=== PATIENT | female | born 1955 | race Caucasian/White ===

== ENCOUNTER 2018-10-10 05:23 | Inpatient (IN) | payer BC, SELFPAY ==
[2018-09-28 13:09] VITALS: BP 133/74; PULSE 52; RESP 16; TEMP 36.5; O2SAT 97; BMI 29.9
--- NOTE | 2018-09-28 13:27 | SDCEKG_ITS ---
Test Reason : Blood Pressure : / mmHG Vent. Rate : 054 BPM Atrial Rate : 054 BPM P-R Int : 172 ms QRS Dur : 088 ms QT Int : 456 ms P-R-T Axes : 057 038 051 degrees QTc Int : 432 ms Sinus bradycardia Otherwise normal ECG Confirmed by ABDI MATTHEWS, ELIZABETH ([id number]), editorial clerk LORENA CHA ([id number]) on 10/03/2018 3:51:23 PM Referred By: Frankie Hernandez Confirmed By:ELIZABETH PATTON MD
--- NOTE | 2018-09-28 13:44 | RAD_ITS ---
STUDY: X-RAY CHEST REASON FOR EXAM: Female, 63 years old. Preprocedural respiratory exam, preop TECHNIQUE: PA and lateral views of the chest. COMPARISON: None. FINDINGS: The lungs are clear and expanded. There is no demonstrated pleural abnormality. Normal size heart. Normal mediastinum and jesse. Normal visualized pulmonary arteries. Normal visualized aortic arch and descending thoracic aorta. Normal visualized thoracic spine. Normal visualized ribs, clavicles, and shoulders. There is no demonstrated abnormality of the visualized soft tissue structures of the upper abdomen. RAD/Chest PA and Lateral IMPRESSION: Normal x-ray examination of the chest. Electronically Signed: Navin Santillan DO at 12:31 EDT Tel , Service support ,
[2018-09-28 13:59] LABS: Absolute Lymphocyte Count 2.57 X10^3/ul (0.83-4.51); Absolute Neutrophil Count 3.9 X10^3/uL (2.0-7.7); Basophil# 0.05 X10^3/uL; Basophil% 0.7 % (0-1); Eosinophil# 0.38 X10^3/uL; Eosinophils% 5.2 % (0-5); Hematocrit 36.6 % (37-47); Hemoglobin 11.8 g/dl (12.0-15.0); Lymphocyte # 2.57 X10^3/ul (4.0); Lymphocyte % 35.1 % (19-41); Mean Corp Hgb Conc 32.2 g/gl (32-36); Mean Corpuscular Volume 86.9 fL (81-99); Mean Platelet Vol. 9.7 fl (6.2-12.0); Monocyte% 5.5 % (0-10); Neutrophil % 53.2 % (47-70); Platelet Count 263 K/mm3 (150-450); RBC Distribution Width CV 13.6 % (11.6-14.6); RBC Distribution Width SD 43.1 fl (35.1-43.9); Red Blood Count 4.21 M/mm3 (4.2-5.4); White Blood Count 7.3 K/mm3 (4.4-11.0)
[2018-09-28 14:00] LABS: POSITIVE COUNT NO; POSITIVE DIFFERENTIAL NO; POSITIVE MORPHOLOGY NO
[2018-09-28 14:07] LABS: Anion Gap 7 (5-15); BUN 29 mg/dL (7-18); BUN/Creat Ratio 22.7 RATIO (10-20); Calcium,Total 8.8 mg/dL (8.5-10.1); Chloride 106 mmol/L (98-107); Creatinine, Serum 1.28 mg/dL (0.55-1.02); EST Glomerular Filtration Rate 45 mL/min (>60); Est Glom Filt Rate - Afr Amer 54 mL/min (>60); Estimated Creatinine Clearance 38.18 ml/min; Glucose 136 mg/dL (74-106); Potassium 3.8 mmol/L (3.5-5.1); Sodium Level 140 mmol/L (136-145)
[2018-09-28 14:19] LABS: Hemoglobin A1c 6.5 % (4.2-6.3)
--- NOTE | 2018-10-06 10:43 | CASEMGMT ---
Call placed to patient to discuss discharge needs after upcoming surgery. Patient plans to return home with assistance from . Has outpatient physical therapy set up at [facility], will assist with transportation. Patient has a walker, bedside commode, walk-in shower with shower seat. Bedroom and bathroom are on the upper level of her split-level home. There are 2 steps into home from outside. Informed patient that RN-CM will follow up after surgery. Leigh Ann Fitzpatrick LPN Clinical Support
[2018-10-10] VITALS (11 sets, daily range): BP systolic 109–163; BP diastolic 48–74; PULSE 68–80; RESP 14–18; TEMP 36.2–38.2; O2SAT 97–100; BMI 29.9
--- NOTE | 2018-10-10 | HIP_PTH ---
PATIENT: OLEG BELL LOC: MS3 U#:[id number] AGE/SX: 63/F ROOM: WI313 RE10/10/[address]: Dr. Frankie Hernandez DO : 1955 BED: 1 DIS: 10/11/2018 SPEC #: [id number] RECD: 10/10/18 14:30 STATUS: MANA RENazario #: [id number] ARJUN: 10/10/18 00:[address]: Frankie Hernandez DEPT: SURGICAL PATHOLOGY RECD BY: Jayden Weaver ENTERED: 10/10/18 14:30 SP TYPE: TOTAL HIP OTHR DR: Dr. Jayjay Reyes DO Tissues: Hip, NOS Procedures: Decalcification bone/plaque Surgery Specimen Level IV HEADER OPERATION: Total hip replacement PRE-OP DIAGNOSIS: Primary osteoarthritis, left hip TISSUE SUBMITTED: Left femoral head bone and tissue MICROSCOPIC DIAGNOSIS Left femoral head bone and tissue, total hip replacement/resection: Femoral head with degenerative osteoarthritic changes. Fragments of fibroadipose tissue, fibroconnective tissue and synovial tissue. RYAN:princess 10/13/18 MICROSCOPIC DESCRIPTION Slides are reviewed. GROSS DESCRIPTION Received is one container labeled with the patient's name and designated left humeral head bone and soft tissue, left hip. The specimen consists of a salazar femoral head with portion of femoral neck. The femoral head measures 4.5 x 5 x 4.5 cm and the femoral neck measures up to 1.5 cm in length. The articular surface displays prominent osteophyte formation, eburnation and bone erosion. Also present in the specimen container are multiple irregular fragments of bone reamings and pink-yellow soft tissue measuring in aggregate 9 x 8 x 3.5 cm. Lube Worker sections are submitted in two cassettes as follows: 1 - soft tissue, 2 - bone after decalcification. / RYAN:princess 10/10/18 TC: 5 CPT: 67627, 86419
[2018-10-10] MEDS: oxyCODONE HCl Cr 10 MG Tablet PO (06:38)
[2018-10-10] MEDS: Acetaminophen 500 MG Tablet 1000 MG PO ×3 (06:38→21:42)
[2018-10-10 06:55] LABS: Bedside Glucose 148 mg/dL (70-110)
[2018-10-10] MEDS: Cefazolin 2 GM in 0.9% Normal Saline 100 ML IV (07:18)
--- NOTE | 2018-10-10 07:25 | RAD_ITS ---
STUDY: X-RAY - PELVIS AND LEFT HIP REASON FOR EXAM: Postoperative left hip. TECHNIQUE: Radiological exam, hip, unilateral, with pelvis when performed; 2 or 3 views. COMPARISON: None. FINDINGS: There is postoperative gas in the soft tissues adjacent to the left hip and overlying skin leatha. Normal bilateral superior and inferior pubic rami. Normal pubic symphysis. Normal bilateral ischial tuberosities. There is a left hip arthroplasty without evidence of complication. There is right hip arthrosis. RAD/Hip Min 2 Views (Portable) IMPRESSION: Uncomplicated left hip arthroplasty. Electronically Signed: Parker Osborn MD at 9:43 EST Tel , Service support ,
--- NOTE | 2018-10-10 08:29 | OP.PN_ITS ---
Immediate Post-Op Note Date of Procedure: 10/10/18 Primary Surgeon/Physician: Frankie Hernandez instrument technician: Philippe Dave Pre-Operative Diagnosis: OA left hip Post-Operative Diagnosis: same Surgery/Procedure Performed:: Left THR Description of Surgical Findings:: see op note Estimated Blood Loss: 100 cc Specimen's removed: femoral head Type of Anesthesia:: Spinal ASA Class: ASA2 Mod Systematic Disease - Admit VTE Documentation VTE Present on Admission: No VTE Mechan Device Prophylaxis: SCD's, Knee High PALMA Hose VTE Pharm Prophylaxis ordered?: Yes
--- NOTE | 2018-10-10 08:33 | OP.PCM_ITS ---
Operative Report Date of Procedure: 10/10/18 Primary Surgeon/Physician: Frankie Hernandez heel seater: Philippe Dave PA-C heel seater: Pre-Operative Diagnosis: OA Left hip Post-Operative Diagnosis: same Surgery/Procedure Performed: Left THR Estimated Blood Loss: 100 cc Specimen's Removed: femoral head Type of Anesthesia: spinal ASA Class: ASA 2 Severe Disease Implants: [Duy Accolade 2 size 3 125 degree femoral stem, 48 mm Trident cup, + 0 MDM femoral head ] Surgical Indications: Patient has severe end-stage osteoarthritic changes in the [left ] hip. They have failed conservative measures including activity modification, anti-inflammatories, use of assistive devices. This to the point where the pain affects their ability to enjoy life and complete activities of daily living without discomfort. Patient has elected to undergo the above procedure Procedure Description: The patient was greeted in the preoperative area the [left ] hip was marked with surgical marker preoperative antibiotics administered. The patient was then taken to or suite in stable condition. Preoperative tranexamic acid was also utilized. Once the patient was placed in the supine position on the operating room table and once adequate anesthesia was obtained they were then placed in the lateral decubitus position with the surgical hip facing the field. All bony prominences were well-padded. A commercial hip position was utilized. The appropriate extremity was then prepped and draped in usual sterile fashion. Ioban was placed on the skin. Surgical timeout was performed and surgery was commenced. A standard posterior approach to the hip was then performed. Incision was planned and carried out with a #10 blade scalpel. Dissection was then carried length of the incision to the IT band which was split proximally and distally. A Charnley retractor was then placed for soft tissue retraction exposing the piriformis. A standard posterior capsulotomy was performed. Severe eburnation of bone was noted and periarticular osteophytes were identified consistent with severe end-stage osteoarthritis. A femoral neck osteotomy guide was used to mei the proximal femur. A femoral osteotomy was then created approximately 1 fingerbreadth above the lesser trochanter. This was measured and placed on the back table. Once this was complete acetabular retractors were placed anteriorly and posteriorly. Labrum was then removed from the acetabulum exposing the entire cup of the acetabulum. Sequential reaming was then commenced and the acetabulum was medialized and sequentially widened in order to accommodate appropriate size cup. The acetabular cup was then impacted into position to the appropriate depth referencing approximately 30? anteversion and 45? of inclination. Excell ent purchase was obtained. An appropriate size MDM liner was then placed. Attention was then turned to the femoral preparation. The hip was placed in the 90/90 position and a lateralizing box osteotome was utilized. Femoral starting awl was used followed by sequential broaching to the appropriate size. Excellent purchase was obtained with the stem no stem subsidence and excellent rotational stability was confirmed. A calcar reamer was then used in the trial head neck was placed on the broach. The hip was then located and taken through full range of motion flexion internal and external rotation as well as extension. Excellent stability was noted no impingement was identified of the components and leg lengths appear to be appropriate. The hip was at this point dislocated and the trial femoral components were removed. The final femoral stem was then implanted and impacted to the appropriate depth. Again excellent purchase was obtained no stem subsidence or rotational instability was noted. The hip was once again trialed and confirmation of leg length and stability was performed. Soft tissue tension also appeared to be appropriate. At this point the hip was redislocated and the trunnion was cleaned and dried meticulously in the appropriate size MDM femoral head was placed on the clean dry trunnion using a 12/14 Kohler taper. The hip was once again relocated and again taken through full range of motion. I did inject a cocktail of postoperative pain medication in the deep and superficial tissues. Copious irrigation was performed. Anatomic closure of the piriformis tendon was performed through drill holes in the greater trochanter. A #1 Vicryl 0 Vicryl was utilized in subcutaneous tissue and surgical leatha were placed in the skin. A well-padded nonadherent dressing was applied. Patient was taken to PACU in stable condition. No complications were identified. Will follow standard postop protocol for total hip arthroplasty. My personalized living assistant played a vital role in the procedure beginning with positioning, holding retraction of soft tissues, positioning the leg to optimize visualization during the procedure and assisting with wound closure.
[2018-10-10 09:13] LABS: Hematocrit 31.7 % (37-47); Hemoglobin 10.2 g/dl (12.0-15.0); Mean Corp Hgb Conc 32.2 g/gl (32-36); Mean Corpuscular Volume 87.1 fL (81-99); Mean Platelet Vol. 9.2 fl (6.2-12.0); Platelet Count 265 K/mm3 (150-450); RBC Distribution Width CV 13.3 % (11.6-14.6); RBC Distribution Width SD 42.8 fl (35.1-43.9); Red Blood Count 3.64 M/mm3 (4.2-5.4); White Blood Count 9.8 K/mm3 (4.4-11.0)
[2018-10-10 09:14] LABS: Scan Indicated on CBC? Y/N NO
[2018-10-10 09:24] LABS: Anion Gap 11 (5-15); BUN 20 mg/dL (7-18); BUN/Creat Ratio 19.6 RATIO (10-20); Calcium,Total 8.3 mg/dL (8.5-10.1); Chloride 106 mmol/L (98-107); Creatinine, Serum 1.02 mg/dL (0.55-1.02); EST Glomerular Filtration Rate 58 mL/min (>60); Est Glom Filt Rate - Afr Amer 71 mL/min (>60); Estimated Creatinine Clearance 47.91 ml/min; Glucose 158 mg/dL (74-106); Potassium 3.6 mmol/L (3.5-5.1); Sodium Level 143 mmol/L (136-145)
[2018-10-10 10:06] LABS: Bedside Glucose 162 mg/dL (70-110)
[2018-10-10] MEDS: Lactated Ringers 1,000 ML 125 ML IV (12:41)
[2018-10-10] MEDS: LINAGLIPTIN 5 MG TABLET PO (12:45)
[2018-10-10] MEDS: Aspirin 325 MG Tablet PO ×2 (12:45→21:42)
[2018-10-10] MEDS: hydroCHLOROthiazide 25 MG Tablet PO (12:45)
[2018-10-10] MEDS: oxyCODONE 5 MG Tablet PO ×2 (16:35→21:42)
[2018-10-10] MEDS: Senna/Docusate Sodium 1 Tablet 2 TABLET PO (21:42)
[2018-10-11 03:30] VITALS: BP 145/82; PULSE 80; RESP 16; TEMP 37.1; O2SAT 99
[2018-10-11] MEDS: 0.9% NaCl Peripheral Flush Adult/Peds IV (03:58)
[2018-10-11] MEDS: Ketorolac 15 MG/ML Vial IV (03:58)
[2018-10-11] MEDS: Acetaminophen 500 MG Tablet 1000 MG PO (05:38)
[2018-10-11 05:51] LABS: Hematocrit 32.1 % (37-47); Hemoglobin 10.5 g/dl (12.0-15.0); Mean Corp Hgb Conc 32.7 g/gl (32-36); Mean Corpuscular Hgb 28.8 pg (27.0-32.0); Mean Corpuscular Volume 88.2 fL (81-99); Mean Platelet Vol. 9.4 fl (6.2-12.0); Platelet Count 209 K/mm3 (150-450); RBC Distribution Width CV 13.2 % (11.6-14.6); RBC Distribution Width SD 41.2 fl (35.1-43.9); Red Blood Count 3.64 M/mm3 (4.2-5.4); White Blood Count 7.9 K/mm3 (4.4-11.0)
[2018-10-11 05:54] LABS: Scan Indicated on CBC? Y/N NO
[2018-10-11 06:15] LABS: Anion Gap 12 (5-15); BUN 15 mg/dL (7-18); Calcium,Total 8.2 mg/dL (8.5-10.1); Chloride 106 mmol/L (98-107); Creatinine, Serum 0.94 mg/dL (0.55-1.02); EST Glomerular Filtration Rate 65 mL/min (>60); Est Glom Filt Rate - Afr Amer 78 mL/min (>60); Estimated Creatinine Clearance 51.99 ml/min; Glucose 153 mg/dL (74-106); Potassium 3.8 mmol/L (3.5-5.1); Sodium Level 140 mmol/L (136-145)
[2018-10-11] MEDS: oxyCODONE 5 MG Tablet PO ×2 (06:59→11:12)
--- NOTE | 2018-10-11 08:04 | PN.ORTHO_ITS ---
Subjective: Patient sitting at bedside eating breakfast. Friends at her side. Patient denies chest pain, shortness breath, calf pain, nausea vomiting. Patient states she is ready for discharge home. Patient states she has had to change rooms twice is she has been very cold and the temperature is been very cool in each room. Objective: Dressings clean dry intact, negative signs and symptoms of DVT. Patient's vitals labs within normal limits. - Physical Exam General: Alert, Oriented x3, Cooperative HEENT: PERRLA Oral: Moist Mucosa Neurological: Cranial nerves II-XII grossly intact Psych/Mental Status: Normal Affect, Alert and oriented to time, place, person, mood and affect Vital Signs Temp Pulse Resp BP Pulse Ox 98.8 F 80 16 145/82 H 99 10/11/18 03:30 10/11/18 03:30 10/11/18 03:30 10/11/18 03:30 10/11/18 03:30 Oxygen Delivery Method Room Air Weight: 76.657 kg Body Mass Index (BMI) 29.9 Finger Stick Blood Glucose 162 Intake and Output for Last 24 Hours 10/09/18 10/10/18 10/11/18 23:59 23:59 23:59 Intake Total 2079 / 0 1264 / 1264 Output Total 900 / 900 Balance 2079 / 2079 364 / 364 Laboratory Tests Past 24 Hrs 10/10/18 10/10/18 10/11/18 09:08 09:08 05:30 WBC 9.8 7.9 RBC 3.64 L 3.64 L Hgb 10.2 L 10.5 L Hct 31.7 L 32.1 L MCV 87.1 88.2 MCH 28.0 28.8 MCHC 32.2 32.7 RDW 13.3 13.2 RDW Differential 42.8 41.2 Plt Count 265 209 MPV 9.2 9.4 Sodium 143 Potassium 3.6 Chloride 106 Carbon Dioxide 26.0 Anion Gap 11 BUN 20 H Creatinine 1.02 Estim Creat Clear Calc 47.91 Est GFR (MDRD) Af Amer 71 Est GFR (MDRD) Non-Af 58 L BUN/Creatinine Ratio 19.6 Glucose 158 H Calcium 8.3 L 10/11/18 05:30 WBC RBC Hgb Hct MCV MCH MCHC RDW RDW Differential Plt Count MPV Sodium 140 Potassium 3.8 Chloride 106 Carbon Dioxide 22.0 Anion Gap 12 BUN 15 Creatinine 0.94 Estim Creat Clear Calc 51.99 Est GFR (MDRD) Af Amer 78 Est GFR (MDRD) Non-Af 65 BUN/Creatinine Ratio 16.0 Glucose 153 H Calcium 8.2 L POC Glucose 10/10/18 10:01 POC Glucose 162 H Medical Necessity - Tobacco Use Smoking Status: Former smoker Assessment/Plan Status post left total hip Plan 1. Continue all pain medications as prescribed 2. Physical therapy today weight-bear as tolerated with walker. 3. We will continue with outpatient physical therapy at [facility] 4. Aspirin 325 mg 1 p.o. every 12 hours times 30 days for postop DVT prophylaxis 5. Encourage incentive spirometry 6. Follow-up with Dr. Hernandez as scheduled see pink sheet 7. Discharge home today after p.m. therapy
--- NOTE | 2018-10-11 08:11 | DCINST_ITS ---
Discharge Diet: No Restrictions Discharge Activity: May Not Drive, May Shower, Use Walker May shower in (days): 2 - only if incision is dry and without drainage. Do NOT soak/submerge in tub/pool/hernandez/stream/hot tub. May resume sexual activity in: No Restrictions Ice area for (Minutes): 20 - every hour while awake Weight Bearing Status: Weight bearing as tolerated Lifting Restrictions: 20 pounds Elevate: Operative Extremity Call your doctor if your incision/area has: Continuous Slow Oozing, Sudden Increased Bleeding, Increased Pain/ Swelling, Increased Redness, Foul Smelling Discharge Call your doctor if you observe: Fever of 101 or Higher, Inability to urinate, Inability to have a bowel movement, Shortness of breath, Fainting spells, Chest pain, Increased palpitations (irregular heartbeat), Calf discomfort, Uncontrolled pain Change Dressing in (Days):: 0 - Change daily and as needed. Remove Dressing in (days):: 8 Cleanse incision/area with: Soap & Water Allergies/Adverse Reactions: Allergies celecoxib [From Celebrex] Allergy (Verified 10/10/18 06:15) Other CAN'T REMEMBER REACTION lisinopril Allergy (Verified 10/10/18 06:15) Unknown losartan Allergy (Verified 10/10/18 06:15) Unknown sulfamethoxazole [From Bactrim] Allergy (Verified 10/10/18 06:15) Hives trimethoprim [From Bactrim] Allergy (Verified 10/10/18 06:15) Hives Medications to take at Discharge Hydrochlorothiazide [Hctz] 25 mg PO DAILY 09/28/18 Omeprazole [Prilosec] 20 mg PO DAILY 09/28/18 Potassium Chloride [Klor-Con 10] 10 meq PO DAILY 09/28/18 Sitagliptin Phos/Metformin HCl [Janumet Xr 100-1,000 mg Tablet] 1 tablet PO DAILY 09/28/18 Amoxicillin 875 mg PO BID 10/10/18 Metoprolol(XL)Succ [Toprol Xl (Beta Silvia)] 25 mg PO DAILY 10/10/18 Acetaminophen [Tylenol] 1,000 mg PO Q8 #90 tab 10/11/18 Aspirin 325 mg PO BID #60 tab 10/11/18 Oxycodone [Oxyir] 5 - 10 mg PO Q6H PRN PRN #80 tab 10/11/18 The following prescriptions were given: Oxycodone [Oxyir] 5 - 10 mg PO Q6H PRN PRN #80 tab PRN Reason: Mod-Severe Pain (-09/07) Acetaminophen [Tylenol] 1,000 mg PO Q8 #90 tab Aspirin 325 mg PO BID #60 tab Primary Care Physician: Jayjay Reyes DO [Primary Care Provider] - Test Results: Test results from this visit will be discussed in further detail at your follow- up appointment, if applicable. Please Follow Up With: Frankie Hernandez DO When: see pink sheet
[2018-10-11 08:27] VITALS: BP 150/72; PULSE 79; RESP 16; TEMP 37.1; O2SAT 97
[2018-10-11] MEDS: Pantoprazole Sodium 20 MG Tablet PO (09:21)
[2018-10-11] MEDS: Aspirin 325 MG Tablet PO (09:21)
[2018-10-11] MEDS: Senna/Docusate Sodium 1 Tablet 2 TABLET PO (09:22)
[2018-10-11 09:23] VITALS: BP 150/72; PULSE 79
[2018-10-11] MEDS: Metoprolol(XL)Succ 25 MG Tablet PO (09:23)
[2018-10-11] MEDS: hydroCHLOROthiazide 25 MG Tablet PO (09:24)
[2018-10-11] MEDS: LINAGLIPTIN 5 MG TABLET PO (09:24)
[2018-10-11 11:18] VITALS: BP 138/68; PULSE 78; RESP 16; TEMP 36.7; O2SAT 95
== END 2018-10-11 11:20 | disposition home or self-care (01) | DRG 470 ==
LOC: ACINP 05:24 → MS3 07:44
PROVIDERS: Admitting Provider Orthopaedic Surgery; Family Provider Preventive Medicine Occupational Medicine; PCP Preventive Medicine Occupational Medicine; Referring Provider Orthopaedic Surgery; Visit Provider Orthopaedic Surgery
PROC: 0SRB0JZ Replacement of Left Hip Joint with Synthetic Substitute, Open Approach (ICD-10-PCS; CPT 27130; principal; 2018-10-10 06:50)
DX: M16.12 Unilateral primary osteoarthritis, left hip (principal); I10 Essential (primary) hypertension; E11.9 Type 2 diabetes mellitus without complications; R01.1 Cardiac murmur, unspecified; Z96.653 Presence of artificial knee joint, bilateral; Z79.84 Long term (current) use of oral hypoglycemic drugs; Z87.891 Personal history of nicotine dependence
CPT/HCPCS: 36415; 71046; 73502; 80048; 82962; 83036; 85025; 85027; 87077; 87081; 88305; 88311; 93005; 97161; 97165; 97530; C1776; J7120; A4216

== ENCOUNTER 2019-09-04 07:38 | Inpatient (IN) | payer BC, SELFPAY ==
[2019-08-21 08:07] VITALS: BP 143/81; PULSE 62; RESP 16; TEMP 36.1; O2SAT 98; BMI 30.7
--- NOTE | 2019-08-21 08:12 | SDCEKG_ITS ---
Test Reason : Blood Pressure : / mmHG Vent. Rate : 054 BPM Atrial Rate : 054 BPM P-R Int : 172 ms QRS Dur : 090 ms QT Int : 438 ms P-R-T Axes : 039 025 029 degrees QTc Int : 415 ms Sinus bradycardia Nonspecific ST abnormality Abnormal ECG Confirmed by GREGORIO MATTHEWS, MICHELA ([id number]), editor map SIMI JONES ([id number]) on 08/30/2019 12:01:17 PM Referred By: Frankie Hernandez Confirmed By:MICHELA PERKINS MD
[2019-08-21 08:36] LABS: Absolute Lymphocyte Count 2.66 X10^3/uL (0.83-4.51); Absolute Neutrophil Count 4.6 X10^3/uL (2.0-7.7); Basophil# 0.04 X10^3/uL; Basophil% 0.5 % (0-1); Eosinophil# 0.24 X10^3/uL; Hematocrit 39.6 % (37-47); Hemoglobin 12.8 g/dL (12.0-15.0); Lymphocyte # 2.66 X10^3/ul (4.0); Lymphocyte % 32.9 % (19-41); Mean Corp Hgb Conc 32.3 g/dL (32-36); Mean Corpuscular Hgb 27.9 pg (27.0-32.0); Mean Corpuscular Volume 86.3 fL (81-99); Monocyte# 0.45 X10^3/uL; Monocyte% 5.6 % (0-10); NRBC Flagged by Analyzer 0 % (0-5); Neutrophil # 4.63 X10^3/uL (2.7-7.7); Neutrophil % 57.3 % (47-70); Platelet Count 282 K/mm3 (150-450); RBC Distribution Width CV 13.2 % (11.6-14.6); RBC Distribution Width SD 40.9 fl (35.1-43.9); Red Blood Count 4.59 M/mm3 (4.2-5.4); White Blood Count 8.1 K/mm3 (4.4-11.0)
[2019-08-21 08:45] LABS: Prothrombin Time (Protime)PT. 12.9 SECONDS (11.7-14.9)
[2019-08-21 08:46] LABS: Partial Thromboplast Time 23.8 Seconds (24.1-36.2)
[2019-08-21 08:59] LABS: AST(SGOT) 16 U/L (15-37); Alanine Aminotransfer ALT/SGPT 38 U/L (13-56); Albumin, Serum 4.1 g/dL (3.2-5.0); Alkaline Phosphatase 111 U/L (45-117); Anion Gap 9 (5-15); BUN 24 mg/dL (7-18); BUN/Creat Ratio 17.1 RATIO (10-20); Calcium,Total 8.9 mg/dL (8.5-10.1); Chloride 106 mmol/L (98-107); EST Glomerular Filtration Rate 40 mL/min (>60); Est Glom Filt Rate - Afr Amer 49 mL/min (>60); Estimated Creatinine Clearance 34.47 ml/min; Glucose 139 mg/dL (74-106); Potassium 3.9 mmol/L (3.5-5.1); Protein, Total 8.1 g/dL (6.4-8.2); Sodium Level 141 mmol/L (136-145)
[2019-08-21 09:31] LABS: Hemoglobin A1c 7.1 % (4.2-6.3)
[2019-09-04] VITALS (10 sets, daily range): BP systolic 115–177; BP diastolic 67–87; PULSE 54–88; RESP 16–18; TEMP 36.6–37.1; O2SAT 96–100; BMI 30.7; BMI 27.9
[2019-09-04 08:06] LABS: Bedside Glucose 206 mg/dL (70-110)
[2019-09-04] MEDS: Magnesium Sulfate 4gm/100mL 4 GM/100 ML IV.SOLN. IV (08:24)
[2019-09-04] MEDS: Lactated Ringers 1,000 ML 999 ML IV (08:25)
[2019-09-04] MEDS: Gabapentin 600 MG Tablet PO (08:25)
[2019-09-04] MEDS: Acetaminophen 500 MG Tablet 1000 MG PO ×3 (08:26→21:28)
--- NOTE | 2019-09-04 09:50 | HIP_PTH ---
PATIENT: OLEG BELL LOC: MS3 U#:[id number] AGE/SX: 64/F ROOM: MS311 RE09/04/[address]: Dr. Frankie Hernnadez DO : 1955 BED: 1 DIS: 09/05/2019 SPEC #: [id number] RECD: 09/04/19 14:51 STATUS: MANA RENazario #: [id number] ARJUN: 09/04/19 09:[address]: Frankie Hernandez DEPT: SURGICAL PATHOLOGY RECD BY: Richard Mejias ENTERED: 09/04/19 15:14 SP TYPE: TOTAL HIP OTHR DR: Dr. Jayjay Reyes DO Tissues: Hip, NOS Procedures: Decalcification bone/plaque Surgery Specimen Level IV HEADER OPERATION: ERAS, total hip replacement PRE-OP DIAGNOSIS: Primary osteoarthritis right hip TISSUE SUBMITTED: Right hip bone and soft tissue MICROSCOPIC DIAGNOSIS Right hip bone and soft tissue, total hip replacement/resection: Femoral head with degenerative osteoarthritic changes. Fragments of fibroadipose and fibroconnective tissue. RYAN:mathew 09/07/19 MICROSCOPIC DESCRIPTION Slides are reviewed. GROSS DESCRIPTION Received is one container labeled with the patient's name and designated bone and soft tissue hip, right. The specimen consists of a salazar femoral head with portion of femoral neck. The femoral head measures 4.5 x 4 x 4 cm and the femoral neck measures 1.2 cm in length. The articular surface displays prominent osteophyte formation, eburnation and bone erosion. Also present in the specimen container are multiple irregular fragments of bone reamings measuring in aggregate 9 x 9 x 3 cm. Oil Well Logging Engineer sections are submitted in two cassettes as follows: 1 - soft tissue and bone reamings after decalcification, 2 - bone after decalcification. / RYAN:mathew 09/04/19 TC:5 CPT: 46944, 21902
[2019-09-04] MEDS: Cefazolin 2 GM in 0.9% Normal Saline 100 ML IV (09:53)
--- NOTE | 2019-09-04 10:59 | OP.PCM_ITS ---
Report of Operation Date of Procedure: 09/04/19 Pre-Operative Diagnosis: OA right hip Post-Operative Diagnosis: same Surgery/Procedure Performed:: Right THR Description of Surgical Findings:: Primary Surgeon/Physician: Frankie Hernandez business analyst manager: Luan Dave PA-C business analyst manager: Pre-Operative Diagnosis: OA right hip Post-Operative Diagnosis: same Surgery/Procedure Performed: Right THR Estimated Blood Loss: 75 cc Specimen's Removed: bone Type of Anesthesia: spinal ASA Class: ASA2 Implants: [Duy Trident 48 mm cup, MDM liner, size 3 x 132 degree Accolade II stem, +3 neck length ] Surgical Indications: Patient has severe end-stage osteoarthritic changes in the [right] hip. They have failed conservative measures including activity modification, anti-inflammatories, use of assistive devices. This to the point where the pain affects their ability to enjoy life and complete activities of daily living without discomfort. Patient has elected to undergo the above procedure Procedure Description: The patient was greeted in the preoperative area the [right ] hip was marked with surgical marker preoperative antibiotics administered. The patient was then taken to or suite in stable condition. Preoperative tranexamic acid was also utilized. Once the patient was placed in the supine position on the operating room table and once adequate anesthesia was obtained they were then placed in the lateral decubitus position with the surgical hip facing the field. All bony prominences were well-padded. A commercial hip position was utilized. The appropriate extremity was then prepped and draped in usual sterile fashion. Ioban was placed on the skin. Surgical timeout was performed and surgery was commenced. A standard posterior approach to the hip was then performed. Incision was planned and carried out with a #10 blade scalpel. Dissection was then carried length of the incision to the IT band which was split proximally and distally. A Charnley retractor was then placed for soft tissue retraction exposing the piriformis. A standard posterior capsulotomy was performed. Severe eburnation of bone was noted and periarticular osteophytes were identified consistent with severe end-stage osteoarthritis. A femoral neck osteotomy guide was used to mei the proximal femur. A femoral osteotomy was then created approximately 1 fingerbreadth above the lesser trochanter. This was measured and placed on the back table. Once this was complete acetabular retractors were placed anteriorly and posteriorly. Labrum was then removed from the acetabulum exposing the entire cup of the acetabulum. Sequential reaming was then commenced and the acetabulum was medialized and sequentially widened in order to accommodate appropriate size cup. The acetabular cup was then impacted into position to the appropriate depth referencing approximately 30? anteversion and 45? of inclination. Excellent purchase was obtained. An appropriate size MDM liner was then placed. Attention was then turned to the femoral preparation. The hip was placed in the 90/90 position and a lateralizing box osteotome was utilized. Femoral starting awl was used followed by sequential broaching to the appropriate size. Excellent purchase was obtained with the stem no stem subsidence and excellent rotational stability was confirmed. A calcar reamer was then used in the trial head neck was placed on the broach. The hip was then located and taken through full range of motion flexion internal and external rotation as well as extension. Excellent stability was noted no impingement was identified of the components and leg lengths appear to be appropriate. The hip was at this point dislocated and the trial femoral components were removed. The final femoral stem was then implanted and impacted to the appropriate depth. Again excellent purchase was obtained no stem subsidence or rotational instability was noted. The hip was once again trialed and confirmation of leg length and stability was performed. Soft tissue tension also appeared to be appropriate. At this point the hip was redislocated and the trunnion was cleaned and dried meticulously in the appropriate size MDM femoral head was placed on the clean dry trunnion using a 12/14 Kohler taper. The hip was once again relocated and again taken through full range of motion. I did inject a cocktail of postoperative pain medication in the deep and superficial tissues. Copious irrigation was performed. Anatomic closure of the piriformis tendon was performed through drill holes in the greater trochanter. A #1 Vicryl 0 Vicryl was utilized in subcutaneous tissue and surgical leatha were placed in the skin. A well-padded nonadherent dressing was applied. Patient was taken to PACU in stable condition. No complications were identified. Will follow standard postop protocol for total hip arthroplasty. My tv production assistant played a vital role in the procedure beginning with positioning, holding retraction of soft tissues, positioning the leg to optimize visualization during the procedure and assisting with wound closure. business analyst manager: Philippe Dave Type of Anesthesia:: Spinal Anesthesiologist: Anibal Wallace Specimen's removed: bone Estimated Blood Loss (mL): 75 cc
--- NOTE | 2019-09-04 11:40 | RAD_ITS ---
STUDY: X-RAY - PELVIS AND RIGHT HIP REASON FOR EXAM: Female, 64 years old. Postop. TECHNIQUE: Frontal and crosstable lateral views of the pelvis/hips. COMPARISON: Frontal and crosstable lateral views of the pelvis/hips October 10, 2018. FINDINGS: There is a non-specific bowel gas pattern. Surgical clip(s) again seen in the lower left pelvic soft tissues. Poorly visualized bilateral iliac wings, sacroiliac joints, and sacrum. Normal bilateral superior and inferior pubic rami. Normal pubic symphysis. Normal bilateral ischial tuberosities. Prior left total hip arthroplasty with an indwelling metal bipolar prosthesis again noted. The patient has now undergone right total hip arthroplasty. Following resection of the femoral head and neck, a metal bipolar hip prosthesis was placed. The acetabular and femoral components appear well seated, and in anatomic alignment. There is no demonstrated fracture. Number male skin leatha are seen along the soft tissues lateral to the hip. RAD/Hip Min 2 Views (Portable) IMPRESSION: Status post right total hip arthroplasty. Electronically Signed: Kevin Fair MD at 16:08 EDT , Service support ,
[2019-09-04 11:56] LABS: Bedside Glucose 166 mg/dL (70-110)
[2019-09-04] MEDS: Lactated Ringers 1,000 ML 125 ML IV ×4 (11:56→23:16)
[2019-09-04 14:58] LABS: Hematocrit 32.3 % (37-47); Hemoglobin 10.8 g/dL (12.0-15.0); Mean Corp Hgb Conc 33.4 g/dL (32-36); Mean Corpuscular Hgb 28.6 pg (27.0-32.0); Mean Corpuscular Volume 85.7 fL (81-99); Mean Platelet Vol. 9.8 fl (6.2-12.0); Platelet Count 237 K/mm3 (150-450); RBC Distribution Width CV 13.2 % (11.6-14.6); RBC Distribution Width SD 40.7 fl (35.1-43.9); Red Blood Count 3.77 M/mm3 (4.2-5.4); White Blood Count 11.8 K/mm3 (4.4-11.0)
[2019-09-04 15:11] LABS: Anion Gap 7 (5-15); BUN 15 mg/dL (7-18); BUN/Creat Ratio 14.2 RATIO (10-20); Calcium,Total 8.5 mg/dL (8.5-10.1); Chloride 106 mmol/L (98-107); Creatinine, Serum 1.06 mg/dL (0.55-1.02); EST Glomerular Filtration Rate 56 mL/min (>60); Est Glom Filt Rate - Afr Amer 67 mL/min (>60); Estimated Creatinine Clearance 51.51 ml/min; Glucose 156 mg/dL (74-106); Potassium 3.7 mmol/L (3.5-5.1); Sodium Level 141 mmol/L (136-145)
[2019-09-04] MEDS: oxyCODONE 5 MG Tablet PO ×2 (17:19→21:30)
[2019-09-04] MEDS: Cefazolin 1 GM/50 ML BAG IV (17:20)
[2019-09-04] MEDS: Senna/Docusate Sodium 1 Tablet 2 TABLET PO (21:28)
[2019-09-05] MEDS: Cefazolin 1 GM/50 ML BAG IV (01:33)
[2019-09-05 02:00] VITALS: BP 150/56; PULSE 62; RESP 18; TEMP 36.7; O2SAT 96
[2019-09-05] MEDS: oxyCODONE 5 MG Tablet PO ×3 (03:20→11:36)
[2019-09-05] MEDS: Acetaminophen 500 MG Tablet 1000 MG PO (05:32)
[2019-09-05 06:51] LABS: Hematocrit 32.3 % (37-47); Hemoglobin 10.4 g/dL (12.0-15.0); Mean Corp Hgb Conc 32.2 g/dL (32-36); Mean Corpuscular Hgb 27.6 pg (27.0-32.0); Mean Corpuscular Volume 85.7 fL (81-99); Mean Platelet Vol. 10.3 fl (6.2-12.0); Platelet Count 230 K/mm3 (150-450); RBC Distribution Width CV 13.4 % (11.6-14.6); RBC Distribution Width SD 41.5 fl (35.1-43.9); Red Blood Count 3.77 M/mm3 (4.2-5.4); White Blood Count 7.2 K/mm3 (4.4-11.0)
[2019-09-05 07:30] LABS: Anion Gap 9 (5-15); BUN 11 mg/dL (7-18); BUN/Creat Ratio 11.2 RATIO (10-20); Calcium,Total 8.1 mg/dL (8.5-10.1); Chloride 104 mmol/L (98-107); Creatinine, Serum 0.98 mg/dL (0.55-1.02); EST Glomerular Filtration Rate 61 mL/min (>60); Est Glom Filt Rate - Afr Amer 74 mL/min (>60); Estimated Creatinine Clearance 55.72 ml/min; Glucose 157 mg/dL (74-106); Potassium 3.5 mmol/L (3.5-5.1); Sodium Level 139 mmol/L (136-145)
[2019-09-05] MEDS: LINAGLIPTIN 5 MG TABLET PO (07:50)
[2019-09-05] MEDS: hydroCHLOROthiazide 25 MG Tablet PO (07:50)
[2019-09-05] MEDS: Aspirin 325 MG Tablet PO (07:50)
[2019-09-05] MEDS: Pantoprazole Sodium 20 MG Tablet PO (07:50)
--- NOTE | 2019-09-05 07:50 | PCM.PN.ORT ---
Subjective: Patient sitting at bedside eating breakfast. Patient states pain is very well managed. Patient denies chest pain, shortness of breath, calf pain, nausea vomiting. Patient states she is ready for discharge home. Objective: Dressing is clean dry intact. Negative signs and symptoms of DVT. Patient's vitals and labs within normal limits. Patient has no respiratory distress, speaking in full sentences. Patient has good plantar flexion dorsiflexion of bilateral feet. - Physical Exam General: Alert, Oriented x3, Cooperative HEENT: PERRLA Oral: Moist Mucosa Cardiovascular: Regular rate Neurological: Cranial nerves II-XII grossly intact Psych/Mental Status: Normal Affect, Alert and oriented to time, place, person, mood and affect Vital Signs Temp Pulse Resp BP Pulse Ox 98.1 F 62 18 150/56 H 96 09/05/19 02:00 09/05/19 02:00 09/05/19 02:00 09/05/19 02:00 09/05/19 02:00 Oxygen Flow Rate (L/min) 6 Oxygen Delivery Method Room Air Weight: 78.5 kg Body Mass Index (BMI) 27.9 Finger Stick Blood Glucose 166 Intake and Output for Last 24 Hours 09/03/19 09/04/19 09/05/19 23:59 23:59 23:59 Intake Total 5007.08 / 5007.08 391.5 / 391.5 Output Total 550 / 550 925 / 925 Balance 4457.08 / 4457.08 -533.5 / -533.5 Laboratory Tests Past 24 Hrs 09/04/19 09/04/19 09/05/19 14:47 14:47 05:52 WBC 11.8 H 7.2 RBC 3.77 L 3.77 L Hgb 10.8 L 10.4 L Hct 32.3 L 32.3 L MCV 85.7 85.7 MCH 28.6 27.6 MCHC 33.4 32.2 RDW Std Deviation 40.7 41.5 RDW Coeff of Jarett 13.2 13.4 Plt Count 237 230 MPV 9.8 10.3 Sodium 141 Potassium 3.7 Chloride 106 Carbon Dioxide 28.0 Anion Gap 7 BUN 15 Creatinine 1.06 H Estim Creat Clear Calc 51.51 Est GFR (MDRD) Af Amer 67 Est GFR (MDRD) Non-Af 56 L BUN/Creatinine Ratio 14.2 Glucose 156 H Calcium 8.5 09/05/19 05:52 WBC RBC Hgb Hct MCV MCH MCHC RDW Std Deviation RDW Coeff of Jarett Plt Count MPV Sodium 139 Potassium 3.5 Chloride 104 Carbon Dioxide 26.0 Anion Gap 9 BUN 11 Creatinine 0.98 Estim Creat Clear Calc 55.72 Est GFR (MDRD) Af Amer 74 Est GFR (MDRD) Non-Af 61 BUN/Creatinine Ratio 11.2 Glucose 157 H Calcium 8.1 L POC Glucose 09/04/19 09/04/19 11:52 08:02 POC Glucose 166 H 206 H Medical Necessity - Tobacco Use Smoking Status: Former smoker Tobacco Use: Non-smoker Assessment/Plan Status post right total hip arthroplasty Plan 1. Continue all pain medications as prescribed 2. Continue physical therapy, weight-bear as tolerated with walker. 3. Aspirin 325 mg 1 p.o. every 12 hours for postop DVT prophylaxis 4. Encourage incentive spirometry 5. Follow-up as scheduled, see pink sheet 6. Discharge home today after p.m. therapy
[2019-09-05] MEDS: Senna/Docusate Sodium 1 Tablet 2 TABLET PO (07:51)
--- NOTE | 2019-09-05 07:55 | DCINST_ITS ---
Discharge Diet: No Restrictions Discharge Activity: May Not Drive, May Shower, Use Walker May shower in (days): 3 - only if incision is dry and without drainage. Do NOT soak/submerge in tub/pool/hernandez/stream/hot tub. May resume sexual activity in: No Restrictions Ice area for (Minutes): 20 - every hour while awake Weight Bearing Status: Weight bearing as tolerated Lifting Restrictions: 20 pounds Elevate: Operative Extremity Call your doctor if your incision/area has: Continuous Slow Oozing, Sudden Increased Bleeding, Increased Pain/ Swelling, Increased Redness, Foul Smelling Discharge Call your doctor if you observe: Fever of 101 or Higher, Inability to urinate, Inability to have a bowel movement, Shortness of breath, Fainting spells, Chest pain, Increased palpitations (irregular heartbeat), Calf discomfort, Uncontrolled pain Change Dressing in (Days):: 0 - Change daily and as needed. Remove Dressing in (days):: 8 Cleanse incision/area with: Soap & Water Allergies/Adverse Reactions: Allergies celecoxib [From Celebrex] Allergy (Verified 09/04/19 08:06) Other CAN'T REMEMBER REACTION lisinopril Allergy (Verified 09/04/19 08:06) Unknown losartan Allergy (Verified 09/04/19 08:06) Unknown sulfamethoxazole [From Bactrim] Allergy (Verified 09/04/19 08:06) Hives trimethoprim [From Bactrim] Allergy (Verified 09/04/19 08:06) Hives Medications to take at Discharge Hydrochlorothiazide [Hctz] 25 mg PO DAILY 09/28/18 Omeprazole [Prilosec] 20 mg PO DAILY 09/28/18 Potassium Chloride [Klor-Con 10] 10 meq PO DAILY 09/28/18 Metoprolol(XL)Succ [Toprol Xl (Beta Silvia)] 25 mg PO DAILY 10/10/18 Sitagliptin Phos/Metformin HCl [Janumet 50-1,000 mg Tablet] 2 ea PO DAILY 08/21/19 Acetaminophen [Tylenol] 1,000 mg PO Q8 #90 tab 09/05/19 Aspirin 325 mg PO BIDCM #60 tab 09/05/19 Oxycodone [Oxyir] 5 - 10 mg PO Q4H PRN PRN 7 Days #85 tab 09/05/19 Senna/Docusate Sodium [Senokot-S] 2 tablet PO BID tablet 09/05/19 The following prescriptions were given: Aspirin 325 mg PO BIDCM #60 tab Prescription Printed Oxycodone [Oxyir] 5 - 10 mg PO Q4H PRN PRN 7 Days #85 tab PRN Reason: Pain Score 4-10/10 Prescription Printed Acetaminophen [Tylenol] 1,000 mg PO Q8 #90 tab Prescription Printed Primary Care Physician: Jayjay Reyes DO [Primary Care Provider] - Test Results: Test results from this visit will be discussed in further detail at your follow- up appointment, if applicable. Please Follow Up With: Philippe Dave PA-C When: SANIA GREGORY (SEE PINK SHEET)
[2019-09-05 07:56] VITALS: PULSE 62
[2019-09-05] MEDS: Metoprolol(XL)Succ 25 MG Tablet PO (07:56)
[2019-09-05] MEDS: metFORMIN HCl 1,000 MG Tablet 1000 MG PO (07:56)
[2019-09-05 07:57] VITALS: BP 139/75; PULSE 62; RESP 18; TEMP 37.3; O2SAT 99
[2019-09-05] MEDS: 0.9% NaCl Peripheral Flush Adult/Peds IV (08:20)
[2019-09-05] MEDS: Ondansetron 4 MG/2 ML Vial IV (08:20)
--- NOTE | 2019-09-05 10:50 | CASEMGMT ---
RN JOYCE Face to Face with patient for initial transition planning/care coordination assessment. RN CM introduced self and role at [facility]. Patient lying in bed, alert and oriented. Patient willing to participate in assessment and is able to answer all questions appropriately. Care providers, pharmacy, and demographics verified. Patient wishes to discharge home and is setup with [facility] for outpatient therapy starting Wednesday. Patient states she has no further needs or concerns at this time. CM to follow for discharge planning needs that may arise. PCP: Amy Specialists: None Preferred Pharmacy: [facility] Insurance: [employer] Prescription Benefit: yes Living Will/HPOA: none LNOK: Living Arrangements: Patient lives with in multi level home with bed and BSC setup on first floor. 5 steps with railing to shower Transportation: DME/HHC: Patient states she has 2 BSC, cane, grab bars, walker, WC, and shower chair at home. Patient to start outpatient therapy at [facility] on Wednesday. Disposition Plan: Patient to discharge home with outpatient therapy, family support, and follow-up plans in place. Valeria RAZO, RN, CM
[2019-09-05 11:25] VITALS: BP 149/84; PULSE 66; RESP 18; TEMP 37.1; O2SAT 99
== END 2019-09-05 12:10 | disposition home or self-care (01) | DRG 470 ==
LOC: ACINP 07:39 → MS3 11:22
PROVIDERS: Anesthesiology; Admitting Provider Orthopaedic Surgery; Family Provider Preventive Medicine Occupational Medicine; PCP Preventive Medicine Occupational Medicine; Referring Provider Orthopaedic Surgery; Visit Provider Orthopaedic Surgery
PROC: 0SR90JZ Replacement of Right Hip Joint with Synthetic Substitute, Open Approach (ICD-10-PCS; CPT 27130; principal; 2019-09-04 09:25)
DX: M16.11 Unilateral primary osteoarthritis, right hip (principal)
CPT/HCPCS: 36415; 73502; 80048; 80076; 82962; 83036; 85025; 85027; 85610; 85730; 87081; 88305; 88311; 93005; 97110; 97162; 97166; 97530; 97535; C1776; J7120; A4216; J2405

== ENCOUNTER → 2023-02-10 | Outpatient (CLI) | payer MEDICARE, SELFPAY ==
[2023-02-10 11:13] LABS: AST(SGOT) 14 U/L (15-37); Alanine Aminotransfer ALT/SGPT 24 U/L (13-56); Cholesterol 215 mg/dL (200); High Density Lipoprotein 75 mg/dL; Triglycerides 196 mg/dL; Very Low Density Lipoprotein 39 mg/dL (5-40)
== END | disposition home or self-care (01) ==
PROVIDERS: PCP Preventive Medicine Occupational Medicine; Referring Provider Preventive Medicine Occupational Medicine; Visit Provider Preventive Medicine Occupational Medicine
DX: E78.2 Mixed hyperlipidemia (principal)
CPT/HCPCS: 36415; 80061; 84450; 84460

== ENCOUNTER → 2023-02-16 | Outpatient (CLI) | payer MEDICARE, SELFPAY ==
[2023-02-16 11:55] LABS: Hemoglobin A1c 7.5 % (3.8-5.6)
[2023-02-16 12:11] LABS: Anion Gap 7 (5-15); BUN 27 mg/dL (7-18); BUN/Creat Ratio 19.3 RATIO (10-20); Calcium,Total 9.1 mg/dL (8.5-10.1); Chloride 106 mmol/L (98-107); EST Glomerular Filtration Rate 40 mL/min (>60); Est Glom Filt Rate - Afr Amer 48 mL/min (>60); Glucose 172 mg/dL (74-106); Potassium 3.9 mmol/L (3.5-5.1); Sodium Level 140 mmol/L (136-145)
== END | disposition home or self-care (01) ==
PROVIDERS: PCP Preventive Medicine Occupational Medicine; Referring Provider Preventive Medicine Occupational Medicine; Visit Provider Preventive Medicine Occupational Medicine
DX: E11.9 Type 2 diabetes mellitus without complications (principal)
CPT/HCPCS: 36415; 80048; 83036

== ENCOUNTER → 2023-12-29 | Outpatient (CLI) | payer MEDICARE, SELFPAY ==
[2023-12-29 10:58] LABS: ALB/GLOB Ratio 1.1 RATIO (0.9-2.4); AST(SGOT) 14 U/L (15-37); Alanine Aminotransfer ALT/SGPT 27 U/L (13-56); Albumin, Serum 3.6 g/dL (3.2-5.0); Alkaline Phosphatase 109 U/L (45-117); Anion Gap 4 (5-15); BUN 23 mg/dL (7-18); BUN/Creat Ratio 19.2 RATIO (10-20); Calcium,Total 9.4 mg/dL (8.5-10.1); Chloride 109 mmol/L (98-107); Cholesterol 230 mg/dL (200); EST Glomerular Filtration Rate 48 mL/min (>60); Est Glom Filt Rate - Afr Amer 58 mL/min (>60); Globulin 3.4 g/dL (2.2-4.2); Glucose 179 mg/dL (74-106); High Density Lipoprotein 77 mg/dL; Microalbumin,Random Urine 13.2 mg/L (NO RANGE EST.); Microalbumin:Creatinine Ratio 15.3 mg/g CRE (<30 mg/g CRE); Potassium 4.2 mmol/L (3.5-5.1); Sodium Level 138 mmol/L (136-145); Triglycerides 226 mg/dL; Very Low Density Lipoprotein 45 mg/dL (5-40)
== END | disposition home or self-care (01) ==
PROVIDERS: PCP Preventive Medicine Occupational Medicine; Visit Provider Preventive Medicine Occupational Medicine
DX: E78.2 Mixed hyperlipidemia (principal); E11.9 Type 2 diabetes mellitus without complications; I10 Essential (primary) hypertension
CPT/HCPCS: 36415; 80053; 80061; 82043; 82570

== ENCOUNTER → 2025-02-21 | Outpatient (CLI) | payer MEDICARE, SELFPAY ==
[2025-02-21 10:45] LABS: Microalbumin,Random Urine 34.9 mg/L (NO RANGE EST.); Microalbumin:Creatinine Ratio 264.4 mg/g CRE
[2025-02-21 10:48] LABS: ALB/GLOB Ratio 1.5 RATIO (0.9-2.4); AST(SGOT) 17 U/L (<=31); Alanine Aminotransfer ALT/SGPT 16 U/L (<=34); Albumin, Serum 4.3 g/dL (3.4-4.8); Alkaline Phosphatase 102 U/L (35-104); Anion Gap 12 (5-15); BUN 27 mg/dL (4-19); BUN/Creat Ratio 20.6 RATIO (10-20); Calcium,Total 8.1 mg/dL (7.6-11.0); Carbon Dioxide 20.5 mmol/L (21.0-32.0); Chloride 105 mmol/L (98-108); Cholesterol 207 mg/dL (<=200); EST Glomerular Filtration Rate 45 (>60); Globulin 2.8 g/dL (2.2-4.2); Glucose 168 mg/dL (70-99); High Density Lipoprotein 76 mg/dL; Low Density Lipoprotein Calc. 103 mg/dL; Potassium 4.2 mmol/L (3.3-5.1); Protein, Total 7.1 g/dL (5.9-8.4); Sodium Level 138 mmol/L (133-145); Total Bilirubin 0.37 mg/dL (0.00-1.30); Triglycerides 137 mg/dL; Very Low Density Lipoprotein 27 mg/dL (5-40); cholesterol:hdl ratio screen 2.71
== END | disposition home or self-care (01) ==
PROVIDERS: PCP Preventive Medicine Occupational Medicine; Referring Provider Preventive Medicine Occupational Medicine; Visit Provider Preventive Medicine Occupational Medicine
DX: E11.9 Type 2 diabetes mellitus without complications (principal); E78.2 Mixed hyperlipidemia; I10 Essential (primary) hypertension
CPT/HCPCS: 36415; 80053; 80061; 82043; 82570

== ENCOUNTER → 2025-04-03 | Outpatient (CLI) | payer MEDICARE, SELFPAY ==
[2025-04-03 12:26] LABS: Microalbumin,Random Urine 29.7 mg/L (NO RANGE EST.); Microalbumin:Creatinine Ratio 253.8 mg/g CRE
== END | disposition home or self-care (01) ==
LOC: LAB 10:00
PROVIDERS: PCP Preventive Medicine Occupational Medicine; Referring Provider Preventive Medicine Occupational Medicine; Visit Provider Preventive Medicine Occupational Medicine
DX: R80.9 Proteinuria, unspecified (principal)
CPT/HCPCS: 82043; 82570

== ENCOUNTER → 2025-06-12 | Outpatient (CLI) | payer MEDICARE, SELFPAY ==
[2025-06-12 09:52] LABS: Hematocrit 34.8 % (37-47); Hemoglobin 11.5 g/dL (12.0-15.0); Mean Corp Hgb Conc 33.0 g/dL (32-36); Mean Corpuscular Volume 83.9 fL (81-99); Mean Platelet Vol. 9.9 fl (6.2-12.0); Platelet Count 261 K/mm3 (150-450); RBC Distribution Width CV 13.4 % (11.6-14.6); RBC Distribution Width SD 41.3 fl (35.1-43.9); Red Blood Count 4.15 M/mm3 (4.2-5.4); White Blood Count 6.6 K/mm3 (4.4-11.0)
[2025-06-12 10:29] LABS: AST(SGOT) 17 U/L (<=31); Alanine Aminotransfer ALT/SGPT 16 U/L (<=34); Albumin, Serum 4.0 g/dL (3.4-4.8); Alkaline Phosphatase 97 U/L (35-104); Anion Gap 12 (5-15); BUN 22 mg/dL (4-19); BUN/Creat Ratio 17.6 RATIO (10-20); Calcium,Total 9.7 mg/dL (7.6-11.0); Carbon Dioxide 21.3 mmol/L (21.0-32.0); Chloride 104 mmol/L (98-108); Cholesterol 211 mg/dL (<=200); Globulin 2.7 g/dL (2.2-4.2); Glucose 162 mg/dL (70-99); Low Density Lipoprotein Calc. 103 mg/dL; Potassium 4.6 mmol/L (3.3-5.1); Triglycerides 182 mg/dL; Very Low Density Lipoprotein 36 mg/dL (5-40); cholesterol:hdl ratio screen 2.94
== END | disposition home or self-care (01) ==
LOC: LAB 09:26
PROVIDERS: PCP Student in an Organized Health Care Education/Training Program; Referring Provider Student in an Organized Health Care Education/Training Program; Visit Provider Student in an Organized Health Care Education/Training Program
DX: E11.69 Type 2 diabetes mellitus with other specified complication (principal); E11.59 Type 2 diabetes mellitus with other circulatory complications; I10 Essential (primary) hypertension; E78.2 Mixed hyperlipidemia
CPT/HCPCS: 36415; 80053; 80061; 85027

== ENCOUNTER → 2025-07-02 | Outpatient (CLI) | payer MEDICARE, SELFPAY | END | disposition home or self-care (01) | LOC: LAB 12:35 | PROVIDERS: PCP Student in an Organized Health Care Education/Training Program; Referring Provider Student in an Organized Health Care Education/Training Program; Visit Provider Student in an Organized Health Care Education/Training Program | DX: I12.9 Hypertensive chronic kidney disease with stage 1 through stage 4 chronic kidney disease, or unspecified chronic kidney disease (principal); E11.69 Type 2 diabetes mellitus with other specified complication; E11.22 Type 2 diabetes mellitus with diabetic chronic kidney disease; N18.9 Chronic kidney disease, unspecified | CPT/HCPCS: 36415; 84439; 84443 ==